=== PATIENT | female | born 1990 | race Caucasian/White ===

== ENCOUNTER 2025-05-17 10:46 | Emergency (ER) | payer SELFPAY ==
[2025-05-17 10:51] VITALS: BP 150/91
[2025-05-17 11:42] VITALS: BP 109/78
[2025-05-17 12:00] VITALS: BP 108/71
[2025-05-17 13:07] VITALS: BP 115/81; BMI 23.2
[2025-05-17 13:13] LABS: Hematocrit 40.0 % (37.0-47.0); Hemoglobin 13.9 g/dL (12.0-16.0); Mean Corp Hgb Conc. 34.8 g/dL (33.0-37.0); Mean Corpuscular Volume 86.2 fL (81.0-99.0); Nucleated Red Blood Cells % 0 %; Platelet Count 189 10^3/uL (130-400); Red Cell Dist. Width 11.6 % (11.5-14.5)
[2025-05-17 13:39] LABS: INR 0.99; PT 13.6 Sec (11.4-14.6)
[2025-05-17 13:40] LABS: APTT 28.0 Sec (23.4-35.0)
[2025-05-17 13:50] LABS: HCG, Serum Qualitative Screen Negative
[2025-05-17 13:55] LABS: Troponin I < 0.012 ng/ml
[2025-05-17 13:56] LABS: ALT (SGPT) 17 U/L (0-35); AST (SGOT) 22 U/L (14-36); Albumin 4.8 g/dl (3.5-5.0); Alkaline Phosphatase 39 U/L (38-126); Blood Urea Nitrogen 11 mg/dl (7-17); Calcium 9.9 mg/dl (8.4-10.2); Carbon Dioxide 21 mmol/L (22-30); Chloride 108 mmol/L (98-107); Estimated Creatinine Clearance 125 ml/min; Glucose 84 mg/dl (70-99); Potassium 3.6 mmol/L (3.5-5.1); Sodium 137 mmol/L (135-145); Total Protein 7.9 g/dl (6.3-8.2); eGFR > 60.00
[2025-05-17 14:02] LABS: D-Dimer < 0.27 ug/mlFEU (0.00-0.50)
--- NOTE | 2025-05-17 14:14 | ED.GENMED ---
History of Present Illness
General
Chief Complaint: Breathing Problem
Source: patient and spouse
Exam Limitations: none
Time Seen by Provider: 05/17/25 12:20
Nursing documentation reviewed up to this point in time: agreed with
History of Present Illness
History of Present Illness:
35-year-old female with past medical history of previous DVT currently taking Lovenox over the past week. Presenting to the emergency department today with initial concerns last night started having left-sided ear pain pressure. She has some
degree of symptoms after a 10-hour flight from [employer] 4 days ago. Also no some swelling to the left leg over the past 5 days after the flight. Due to brief episode of palpitations which she believes was from anxiety due to having the additional
symptoms no longer having symptoms this was short-lived for a few minutes at home. Denies any ongoing chest pain no fevers no recent illness. Has been taking Lovenox twice daily over the past week or so.
Review of Systems
Review of Systems
Allergies reviewed?: Yes
All Other Systems: ROS reviewed and negative except as documented in HPI and ROS
Phy Exam
Physical Exam
Physical Exam:
GENERAL: Alert , in no apparent distress
EYE: pupils equal and reactive
NECK: Supple, no significant adenopathy.
ENT: Effusion to the left inner ear no redness no tenderness to the outer ear no redness or warmth no tenderness to the mastoid normal posterior pharynx o/p clr, mmm.
CARDIAC: Regular rate and rhythm .
LUNGS: Clear breath sounds bilaterally, no acute respiratory distress, no wheezes/rales/rhonchi
ABDOMEN: Soft, without focal tenderness, no r/g, no cvat
NEUROLOGICAL: Alert and oriented, no focal neuro deficits
SKIN: Warm and dry, skin intact.
MUSCULOSKELETAL: Trace edema to the left lower extremity distal to the knee. , well perfused.
PSYCH: Normal and appropriate interaction.
Course
Orders/Labs/Results
Orders:
Orders
05/17/25 10:56
Electrocardiogram (*1) Urgent
Reason for Study: Chest Pain
EKG- Treatment ONCE
05/17/25 12:01
CXR2 [CR Chest - 2 Views ] Urgent
Comment:
Reason For Exam: shortness of breath
05/17/25 12:32
Venous Doppler Lwr Ext Left [US Periph Venous LOWER Ext LT] Urgent
Comment:
Reason For Exam: left leg swelling
05/17/25 12:33
Test Result ONCE
05/17/25 13:04
Beta Hcg Serum Qualitative Screen [HCG, Serum Qualitative Screen] Urgent
Complete Blood Count/With Diff Urgent
Comprehensive Metabolic Panel Urgent
D-Dimer Urgent
NT-proBNP Urgent
PTT Urgent
Prothrombin Time Urgent
Troponin I Urgent
Abnormal Lab Results
05/17/25
13:04
MPV 10.6 H fL
(7.4-10.4)
Chloride 108 H mmol/L
(98-107)
Carbon Dioxide 21 L mmol/L
(22-30)
05/17/25 13:04
05/17/25 13:04
Vital Signs
Initial and Last Documented VS:
Initial Vital Signs
Temp Pulse Resp BP Pulse Ox
98 F 76 22 150/91 100
05/17/25 10:51 05/17/25 10:51 05/17/25 10:51 05/17/25 10:51 05/17/25 10:51
Last Documented Vital Signs
Temp Pulse Resp BP Pulse Ox
97.5 F 82 20 115/81 100
05/17/25 13:07 05/17/25 13:07 05/17/25 13:07 05/17/25 13:07 05/17/25 13:07
MDM/Problems Addressed
MDM/Problems Addressed:
35-year-old female presenting to the emergency department today with concerns of headache left ear pain starting last night also leg swelling over the past week or so after a 10-hour flight. Does have a previous history of DVT has been on Lovenox
over the past week. Vital signs normal on arrival normal heart rate normal pulse ox. Labs unremarkable D-dimer negative troponin negative EKG normal PE very unlikely with normal D-dimer currently on Lovenox normal vital signs. Ultrasound negative
the left lower extremity. Normal chest x-ray. Lungs are clear no ongoing chest pain troponin negative ACS very unlikely. Patient does have a small effusion to left ear which could be explain patient's symptoms she was advised to use steroids over
the next few days to help with inflammation and symptoms. Otherwise stable for discharge at this time return precautions given.
*Pulse Oximetry
SaO2: 100
Oxygen Mode of Delivery: Room air
Patient hypoxic: no (100)
*Critical Care Note
Total Time (30-74mins, 75-104mins- exclusive of procedures): Not Applicable
ED Attending Note
-
Portions of this chart may have been created with voice recognition software.� Occasional wrong word or��sound alike� substitutions may have occurred due to the inherent limitations of voice recognition software.
Discharge Plan
Departure
Patient Disposition: Home (Routine Discharge)
Date of Disposition: 05/17/25
Time of Disposition: 14:24
Patient with high blood pressure during this ER visit?: No
Condition: Good
Covid-19: Not Applicable
Discharge Problem:
Acute effusion of left ear, Acute anxiety
Instructions: Headache, Adult (DC)
Prescriptions:
New
fluticasone propionate [Flonase Allergy Relief] 50 mcg/actuation spray,suspension
1 spray intranasal BID Qty: 16 0RF
hydroxyzine HCl 25 mg tablet
25 mg PO TID Qty: 7 0RF
Referrals:
NONE,* [Family Provider, Internal Medicine]
Activity Restrictions/Additional Instructions:
You came to the emergency department today with concerns of headache and left ear pain as well as left leg swelling. Here your reassuring assessment. You had a normal ultrasound of the left leg normal labs and normal chest x-ray. Please take the
prescribed medications to help with symptoms as needed. Please follow closely with your primary care doctor. Return for any worsening, new or concerning symptoms.
Interventions
Interventions:
*Risk Screen - Suicide Last Done: 05/17/25 10:51
*General Assessment Last Done: 05/17/25 10:51
*Neglect/Abuse Screening Last Done: 05/17/25 10:51
*ED- Fall Risk Assessment Last Done: 05/17/25 13:07
*ED COVID-19 Vaccine History Last Done: 05/17/25 13:07
ED- Cardiac Assessment Last Done: 05/17/25 13:07
ED- Neurological Assessment Last Done: 05/17/25 13:07
ED- Pulmonary Assessment Last Done: 05/17/25 13:07
Discharge Date and Time
Print Language: CITIZ[place]
== END 2025-05-17 14:51 | disposition home or self-care (01) ==
LOC: EMR 10:46
PROVIDERS: Physician Assistant; EMERGENCY PHYSICIAN Student in an Organized Health Care Education/Training Program
DX: H92.02 Otalgia, left ear (principal); R00.2 Palpitations; M25.48 Effusion, other site; M79.605 Pain in left leg; R60.0 Localized edema; R51.9 Headache, unspecified; F41.9 Anxiety disorder, unspecified; Z79.01 Long term (current) use of anticoagulants; Z86.718 Personal history of other venous thrombosis and embolism
CPT/HCPCS: 99285; 71046; 80053; 83880; 84484; 84703; 85025; 85379; 85610; 85730; 93005; 93971